=== PATIENT | female | born 1985 | race Caucasian/White ===

== ENCOUNTER 2023-08-28 10:46 | Outpatient (CLI) | payer OTHER, SELFPAY | END 2023-08-28 10:47 | disposition home or self-care (01) | PROVIDERS: Visit Provider Registered Nurse | DX: Z01.419 Encounter for gynecological examination (general) (routine) without abnormal findings (principal); E66.9 Obesity, unspecified; F41.9 Anxiety disorder, unspecified; R53.83 Other fatigue; Z13.6 Encounter for screening for cardiovascular disorders | CPT/HCPCS: 80061; 82306; 84443 ==

== ENCOUNTER 2025-01-27 13:36 | Outpatient (CLI) | payer OTHER, SELFPAY | END 2025-01-27 13:37 | disposition home or self-care (01) | LOC: FRMREF 13:37 | PROVIDERS: Visit Provider Registered Nurse | DX: Z13.6 Encounter for screening for cardiovascular disorders (principal) | CPT/HCPCS: 80061 ==